=== PATIENT | female | born 1955 | race Caucasian/White ===

== ENCOUNTER 2019-03-03 15:04 | Emergency (ER) | payer BC ==
[2019-03-03] MEDS ORDERED: Sodium Chloride 0.9% 1000 ML 1,000 ML IV STA ×2 (15:32→18:47)
[2019-03-03] MEDS ORDERED: Sodium Chloride 0.9% 1000 ML 1,000 ML ONE ×3 (15:35→19:04)
[2019-03-03] MEDS ORDERED: MORPHINE SULFATE 4 MG INJ IV ONE ×3 (15:53→19:12)
[2019-03-03] MEDS ORDERED: Phenergan 25 MG INJ IM ONE (15:54)
[2019-03-03] MEDS ORDERED: MORPHINE SULFATE 4 MG INJ ONE ×3 (15:57→19:17)
[2019-03-03] MEDS ORDERED: Phenergan 25 MG INJ ONE (15:57)
--- NOTE | 2019-03-03 15:58 | ERPHSYRPT ---
- History of Present Illness Time Seen by Provider: 03/03/19 15:48 Historian: patient Exam Limitations: no limitations Patient Subjective Stated Complaint: Pt states "I had second dose of radiation today for cancer in my spine and about an hour or so ago I started to have severe abdominal pain and nausea." Triage Nursing Assessment: Pt presented alert and orented X 3, skin pwd pt grunting, moves slowly, able to speak in clear full sentences. PT in no apparent respiratory distress. Physician History: 63-year-old white female with history of breast cancer with metastases to the bone arrives with complaint of pain in the epigastric region radiating to her back which is severe which began on the way home from receiving second dose of radiation for her back Patient states she's been having dry heaves no fevers Past medical history includes diabetes type 2, hyperlipidemia, high blood pressure, GERD, breast cancer, bone cancer, anxiety. Past surgical history includes cholecystectomy, partial mastectomy on the left, left axillary lymph node, hysterectomy Social history patient denies tobacco alcohol or illicit drug use. Timing/Duration: today Activities at Onset: other (ddriving home from receiving radiation treatment) Quality: aching Abdominal Pain Onset Location: epigastric Pain Radiation: back Severity of Pain-Max: moderate Severity of Pain-Current: moderate Modifying Factors: Improves With: nothing Associated Symptoms: back, diaphoresis, nausea, other (dry heavesdry heaves), No chest pain, No diarrhea, No fever/chills, No fatigue, No headache, No heartburn, No loss of appetite, No neck pain, No rash, No shortness of breath, No syncope, No vomiting, No weakness Previous symptoms: no prior history Allergies/Adverse Reactions: No Known Drug Allergies Allergy (Unverified 03/03/19 15:22) Home Medications: Anastrozole [Arimidex] 1 mg PO DAILY 03/03/19 [History] Atorvastatin Calcium [Lipitor] 40 mg PO DAILY 03/03/19 [History] Denosumab [Xgeva] 120 mg SQ 03/03/19 [History] Dexamethasone [Decadron] 4 mg PO BID 03/03/19 [History] Escitalopram Oxalate 10 mg [Lexapro 10 MG] 10 mg PO DAILY 03/03/19 [History] Fish Oil/Dha/Epa [Fish Oil 1,200 mg Fish Oil] 1 each PO DAILY 03/03/19 [History] Hydrochlorothiazide 25 mg [hydroDIURIL 25 MG] 25 mg PO DAILY 03/03/19 [ History] Lisinopril 10 mg [Zestril 10 MG] 10 mg PO DAILY 03/03/19 [History] Metformin HCl 500 mg [Glucophage 500 MG] 1,000 mg PO BIDWM 03/03/19 [ History] Multivitamin/Iron/Folic Acid [Centrum Adults Tablet] 1 each PO DAILY 03/03/19 [ History] Nebivolol HCl [Bystolic] 10 mg PO DAILY 03/03/19 [History] Tramadol HCl 50 mg [Ultram 50 mg] 50 mg PO DAILY 03/03/19 [History] Hx Tetanus, Diphtheria Vaccination/Date Given: Yes Hx Influenza Vaccination/Date Given: No Hx Pneumococcal Vaccination/Date Given: No Immunizations Up to Date: Yes - Review of Systems Constitutional: No Fever, No Chills Eyes: No Symptoms Ears, Nose, & Throat: No Symptoms Respiratory: No Cough, No Dyspnea Cardiac: No Chest Pain, No Edema, No Syncope Abdominal/Gastrointestinal: Abdominal Pain, Other (dry heaves) Genitourinary Symptoms: No Dysuria Musculoskeletal: Back Pain, No Arthralgias, No Neck Pain, No Deformity, No Fall , No Injury, No Joint Redness, No Joint Pain, No Joint Swelling, No Myalgias Skin: No Rash Neurological: No Dizziness, No Focal Weakness, No Sensory Changes Psychological: No Symptoms Endocrine: No Symptoms All Other Systems: Reviewed and Negative - Past Medical History Pertinent Past Medical History: Yes Neurological History: No Pertinent History ENT History: No Pertinent History Cardiac History: High Cholesterol, Hypertension Respiratory History: No Pertinent History Endocrine Medical History: Diabetes Type II Musculoskeletal History: Bone Cancer GI Medical History: GERD History: No Pertinent History Psycho-Social History: Anxiety Female Reproductive Disorders: Breast Cancer, Other - Past Surgical History Past Surgical History: Yes Other Surgical History: mamadou. partial masectomy left side. left axilary lymph node. left shoulder - Social History Smoking Status: Never smoker Exposure to second hand smoke: No Drug Use: none Patient Lives Alone: No - Female History Hx Now: No - Nursing Vital Signs Nursing Vital Signs: Initial Vital Signs Temperature 98.0 F 03/03/19 15:14 Pulse Rate 79 03/03/19 15:14 Respiratory Rate 24 03/03/19 15:14 Blood Pressure 130/74 03/03/19 15:14 O2 Sat by Pulse Oximetry 98 03/03/19 15:14 Pain Scale Pain Intensity 5 - Physical Exam General Appearance: moderate distress, alert Eye Exam: PERRL/EOMI, eyes nml inspection Ears, Nose, Throat Exam: normal ENT inspection, pharynx normal, moist mucous membranes Neck Exam: normal inspection, non-tender, supple, full range of motion Respiratory Exam: normal breath sounds, lungs clear, No respiratory distress Cardiovascular Exam: regular rate/rhythm, normal heart sounds, capillary refill <2 sec Gastrointestinal/Abdomen Exam: soft, tenderness (tender epigastric region with palpation), distention Back Exam: normal inspection, normal range of motion, No CVA tenderness, No vertebral tenderness Extremity Exam: normal inspection, normal range of motion, pelvis stable Neurologic Exam: alert, oriented x 3, dispenser operator II-XII nml as tested Skin Exam: normal color, warm, dry SpO2 Interpretation: normal (98%) SpO2: 98 Ordered Tests: Active Orders 24 hr Category Date Time Status EKG-ER Only STAT Care 03/03/19 15:53 Active IV Insertion STAT Care 03/03/19 15:53 Active IV Insertion-2nd Peripheral STAT Care 03/03/19 19:02 Active ABDOMEN AND PELVIS W CONTRAST [CT] Stat Exams 03/03/19 17:06 Taken AMYLASE Stat Lab 03/03/19 15:53 Completed BLOOD CULTURE Stat Lab 03/03/19 18:47 Ordered CBC W DIFF Stat Lab 03/03/19 15:53 Completed CMP Stat Lab 03/03/19 15:53 Completed CULTURE,URINE Stat Lab 03/03/19 16:37 Received LIPASE Stat Lab 03/03/19 15:53 Completed Lactic Acid Stat Lab 03/03/19 18:58 Results Manual Differential NC Stat Lab 03/03/19 15:53 Completed TROPONIN Q3H Lab 03/03/19 16:00 Completed TROPONIN Q3H Lab 03/03/19 19:04 Completed TROPONIN Q3H Lab 03/03/19 22:00 Ordered TROPONIN Q3H Lab 03/04/19 01:00 Ordered TROPONIN Q3H Lab 03/04/19 04:00 Ordered UA W/RFX UR CULTURE Stat Lab 03/03/19 16:37 Completed VENOUS BLOOD GAS Stat Lab 03/03/19 18:58 Completed Medication Summary Generic Name Dose Route Start Last Admin Trade Name Liza PRN Reason Stop Dose Admin Sodium Chloride 1,000 mls @ 100 mls/hr 03/03/19 17:15 03/03/19 19:03 Sodium Chloride 0.9% 1000 Ml IV 04/02/19 17:14 999 mls/hr .Q10H VAHE Infusion Discontinued Medications Generic Name Dose Route Start Last Admin Trade Name Liza PRN Reason Stop Dose Admin Sodium Chloride 1,000 mls @ 999 mls/hr 03/03/19 15:32 03/03/19 16:37 Sodium Chloride 0.9% 1000 Ml IV 03/03/19 16:32 Infused .Q1H1M STA Infusion Sodium Chloride Confirm 03/03/19 15:35 Sodium Chloride 0.9% 1000 Ml Administered 03/03/19 15:36 Dose 1,000 mls @ ud .ROUTE .STK-MED ONE Sodium Chloride 1,000 mls @ 999 mls/hr 03/03/19 18:47 03/03/19 19:08 Sodium Chloride 0.9% 1000 Ml IV 03/03/19 19:47 999 mls/hr .Q1H1M STA Administration Piperacillin Sod/Tazobactam Sod 3.375 gm in 100 mls @ 200 mls/hr 03/03/19 18: 52 03/03/19 19:16 Zosyn 3.375gm/100 Ml D5w IV 03/03/19 19:21 200 ml/hr STAT STA 200 mls/hr Administration Piperacillin Sod/Tazobactam Sod Confirm 03/03/19 19:04 Zosyn 3.375gm/100 Ml D5w Administered 03/03/19 19:05 Dose 3.375 gm in 100 mls @ ud IV .STK-MED ONE Morphine Sulfate 4 mg 03/03/19 15:53 03/03/19 16:00 Morphine Sulfate 4 Mg Inj IV 03/03/19 15:54 4 mg STAT ONE Administration Morphine Sulfate Confirm 03/03/19 15:57 Morphine Sulfate 4 Mg Inj Administered 03/03/19 15:58 Dose 4 mg .ROUTE .STK-MED ONE Morphine Sulfate 4 mg 03/03/19 17:06 03/03/19 17:17 Morphine Sulfate 4 Mg Inj IV 03/03/19 17:07 4 mg STAT ONE Administration Morphine Sulfate Confirm 03/03/19 17:14 Morphine Sulfate 4 Mg Inj Administered 03/03/19 17:15 Dose 4 mg .ROUTE .STK-MED ONE Morphine Sulfate 4 mg 03/03/19 19:12 03/03/19 19:19 Morphine Sulfate 4 Mg Inj IV 03/03/19 19:13 4 mg STAT ONE Administration Morphine Sulfate Confirm 03/03/19 19:17 Morphine Sulfate 4 Mg Inj Administered 03/03/19 19:18 Dose 4 mg .ROUTE .STK-MED ONE Promethazine HCl 25 mg 03/03/19 15:54 03/03/19 16:01 Phenergan 25 Mg Inj IM 03/03/19 15:55 25 mg STAT ONE Administration Promethazine HCl Confirm 03/03/19 15:57 Phenergan 25 Mg Inj Administered 03/03/19 15:58 Dose 25 mg .ROUTE .STK-MED ONE Lab/Rad Data: Laboratory Result Diagrams 03/03/19 15:53 03/03/19 15:53 Laboratory Results 03/03/19 03/03/19 03/03/19 Range/Units 19:04 18:58 18:58 WBC (4.0-10.5) K/mm3 RBC (4.1-5.4) M/mm3 Hgb (12.0-16.0) gm/dl Hct (35-47) % MCV (78-100) fl MCH (26-32) pg MCHC (32-36) g/dl RDW (11.5-14.0) % Plt Count (150-450) K/mm3 MPV (6-9.5) fl pO2/FiO2 Ratio 21.0 % VBG pH 7.34 (7.32-7.42) VBG pCO2 at Pat Temp 46 (42-55) mm/Hg VBG pO2 at Pat Temp 20 L (25-40) mm/Hg VBG HCO3 24.8 (22-28) meq/L VBG O2 Sat ([place]) 35.0 L (95-100) VBG Base Excess -1.3 (-2.0-2.0) VBG Hemoglobin 12.8 VBG Carboxyhemoglobin 0.7 (0.0-6.9) % T HGB POC Potassium 4.3 (3.5-5.1) Sodium (137-145) mmol/L Potassium (3.5-5.1) mmol/L Chloride (98-107) mmol/L Carbon Dioxide (22-30) mmol/L Anion Gap (5-15) MEQ/L BUN (7-17) mg/dL Creatinine (0.52-1.04) mg/dL Estimated GFR ML/MIN Glucose (74-106) mg/dL Lactic Acid 3.2 H (0.4-2.0) Calcium (8.4-10.2) mg/dL Total Bilirubin (0.2-1.3) mg/dL AST (14-36) U/L ALT (0-35) U/L Alkaline Phosphatase (38-126) U/L Troponin I < 0.012 (0.000-0.034) ng/mL Serum Total Protein (6.3-8.2) g/dL Albumin (3.5-5.0) g/dL Amylase (30-110) U/L Lipase (23-300) U/L Urine Color (YELLOW) Urine Appearance (CLEAR) Urine pH (5-6) Ur Specific [place] (1.005-1.025) Urine Protein (Negative) Urine Ketones (NEGATIVE) Urine Blood (0-5) Kuldeep/ul Urine Nitrite (NEGATIVE) Urine Bilirubin (NEGATIVE) Urine Urobilinogen (0-1) mg/dL Ur Leukocyte Esterase (NEGATIVE) Urine WBC (Auto) (0-5) /HPF Urine RBC (Auto) (0-2) /HPF U Epithel Cells (Auto) (FEW) /HPF Urine Bacteria (Auto) (NEGATIVE) /HPF Urine Mucus (Auto) (NEGATIVE) /HPF Urine Culture Reflexed (NO) Urine Glucose (NEGATIVE) mg/dL 03/03/19 03/03/19 03/03/19 Range/Units 16:37 16:00 15:53 WBC (4.0-10.5) K/mm3 RBC (4.1-5.4) M/mm3 Hgb (12.0-16.0) gm/dl Hct (35-47) % MCV (78-100) fl MCH (26-32) pg MCHC (32-36) g/dl RDW (11.5-14.0) % Plt Count (150-450) K/mm3 MPV (6-9.5) fl pO2/FiO2 Ratio % VBG pH (7.32-7.42) VBG pCO2 at Pat Temp (42-55) mm/Hg VBG pO2 at Pat Temp (25-40) mm/Hg VBG HCO3 (22-28) meq/L VBG O2 Sat ([place]) (95-100) VBG Base Excess (-2.0-2.0) VBG Hemoglobin VBG Carboxyhemoglobin (0.0-6.9) % T HGB POC Potassium (3.5-5.1) Sodium 136 L (137-145) mmol/L Potassium 5.3 H (3.5-5.1) mmol/L Chloride 99 (98-107) mmol/L Carbon Dioxide 27 (22-30) mmol/L Anion Gap 15.9 H (5-15) MEQ/L BUN 32 H (7-17) mg/dL Creatinine 0.85 (0.52-1.04) mg/dL Estimated GFR > 60.0 ML/MIN Glucose 114 H (74-106) mg/dL Lactic Acid (0.4-2.0) Calcium 8.4 (8.4-10.2) mg/dL Total Bilirubin 0.40 (0.2-1.3) mg/dL AST 40 H (14-36) U/L ALT 59 H (0-35) U/L Alkaline Phosphatase 1317 H (38-126) U/L Troponin I < 0.012 (0.000-0.034) ng/mL Serum Total Protein 7.2 (6.3-8.2) g/dL Albumin 3.7 (3.5-5.0) g/dL Amylase 257 H (30-110) U/L Lipase 417 H (23-300) U/L Urine Color YELLOW (YELLOW) Urine Appearance SLIGHTLY CLOUDY (CLEAR) Urine pH 5.0 (5-6) Ur Specific [place] 1.023 (1.005-1.025) Urine Protein NEGATIVE (Negative) Urine Ketones NEGATIVE (NEGATIVE) Urine Blood NEGATIVE (0-5) Kuldeep/ul Urine Nitrite NEGATIVE (NEGATIVE) Urine Bilirubin NEGATIVE (NEGATIVE) Urine Urobilinogen NEGATIVE (0-1) mg/dL Ur Leukocyte Esterase SMALL (NEGATIVE) Urine WBC (Auto) 11-15 (0-5) /HPF Urine RBC (Auto) 0-2 (0-2) /HPF U Epithel Cells (Auto) NONE (FEW) /HPF Urine Bacteria (Auto) RARE (NEGATIVE) /HPF Urine Mucus (Auto) SLIGHT (NEGATIVE) /HPF Urine Culture Reflexed YES (NO) Urine Glucose NEGATIVE (NEGATIVE) mg/dL 03/03/19 Range/Units 15:53 WBC 10.8 H (4.0-10.5) K/mm3 RBC 4.81 (4.1-5.4) M/mm3 Hgb 13.7 (12.0-16.0) gm/dl Hct 42.4 (35-47) % MCV 88.1 (78-100) fl MCH 28.5 (26-32) pg MCHC 32.3 (32-36) g/dl RDW 17.6 H (11.5-14.0) % Plt Count 338 (150-450) K/mm3 MPV 8.5 (6-9.5) fl pO2/FiO2 Ratio % VBG pH (7.32-7.42) VBG pCO2 at Pat Temp (42-55) mm/Hg VBG pO2 at Pat Temp (25-40) mm/Hg VBG HCO3 (22-28) meq/L VBG O2 Sat ([place]) (95-100) VBG Base Excess (-2.0-2.0) VBG Hemoglobin VBG Carboxyhemoglobin (0.0-6.9) % T HGB POC Potassium (3.5-5.1) Sodium (137-145) mmol/L Potassium (3.5-5.1) mmol/L Chloride (98-107) mmol/L Carbon Dioxide (22-30) mmol/L Anion Gap (5-15) MEQ/L BUN (7-17) mg/dL Creatinine (0.52-1.04) mg/dL Estimated GFR ML/MIN Glucose (74-106) mg/dL Lactic Acid (0.4-2.0) Calcium (8.4-10.2) mg/dL Total Bilirubin (0.2-1.3) mg/dL AST (14-36) U/L ALT (0-35) U/L Alkaline Phosphatase (38-126) U/L Troponin I (0.000-0.034) ng/mL Serum Total Protein (6.3-8.2) g/dL Albumin (3.5-5.0) g/dL Amylase (30-110) U/L Lipase (23-300) U/L Urine Color (YELLOW) Urine Appearance (CLEAR) Urine pH (5-6) Ur Specific [place] (1.005-1.025) Urine Protein (Negative) Urine Ketones (NEGATIVE) Urine Blood (0-5) Kuldeep/ul Urine Nitrite (NEGATIVE) Urine Bilirubin (NEGATIVE) Urine Urobilinogen (0-1) mg/dL Ur Leukocyte Esterase (NEGATIVE) Urine WBC (Auto) (0-5) /HPF Urine RBC (Auto) (0-2) /HPF U Epithel Cells (Auto) (FEW) /HPF Urine Bacteria (Auto) (NEGATIVE) /HPF Urine Mucus (Auto) (NEGATIVE) /HPF Urine Culture Reflexed (NO) Urine Glucose (NEGATIVE) mg/dL - Progress Progress: improved Progress Note: 03/03/19 18:53 Notified by virtual radiology patient has perforation along the greater curvature of the gastric antrum with free intraperitoneal air but no definitive per gastric abscess as well as small abscess in the gastric wall. Patient also with extensive osteoblastic metastatic disease apical lucencies involving the right femoral head and neck could represent treated metastatic lesions. There is a large left pleural effusion and left basilar atelectasis I've gone ahead and ordered blood cultures on this patient lactate intravenous gases have been ordered. I've ordered Zosyn to be begun as soon as blood cultures have been obtained. I've ordered of normal saline will give patient a total of 3 L. I have placed a call to [facility] one call for possible transfer. The patient's oncologist is at [facility] and the patient has asked to go to [facility]. Impression epigastric pain,. Perforated gastric antrum . History of breast cancer with metastases. 03/03/19 19:13 I contacted [facility] one call was put in contact with , he did want to know whether the patient wanted aggressive measures. He stated that the patient should be transferred to the hospitalist and if she wants aggressive measures they need to let her know I went ahead and discuss this with the patient at this time she wishes to have aggressive measures and possible surgery. Will go ahead and plan to transfer once I get a hold of the hospitalist at [facility]. Patient is receiving morphine IV for pain Zosyn has been ordered as noted above IV fluids have been given to the patient. . 03/03/19 20:03 the patient was accepted to [facility] By Dr Spangler - Departure Departure Disposition: Transfer ([facility], Dr Spangler) Clinical Impression: perforated gastric antrum, History of breast cancer with metastases Abdominal pain Qualifiers: Abdominal location: epigastric Qualified Code(s): R10.13 - Epigastric pain Condition: Fair Critical Care Time: No Referrals: TRISHA PEREZ MD [Primary Care Provider] -
[2019-03-03 16:20] LABS: Hematocrit 42.4 % (35-47); Hemoglobin 13.7 gm/dl (12.0-16.0); Mean Cell Volume 88.1 fl (78-100); Mean Corpuscular Hemoglobin 28.5 pg (26-32); Mean Corpuscular Hgb Concent. 32.3 g/dl (32-36); Mean Platelet Volume 8.5 fl (6-9.5); Platelet Count 338 K/mm3 (150-450); Red Blood Count 4.81 M/mm3 (4.1-5.4); Red Cell Distribution Width 17.6 % (11.5-14.0); White Blood Count 10.8 K/mm3 (4.0-10.5)
[2019-03-03 16:33] LABS: ALBUMIN 3.7 g/dL (3.5-5.0); ALKALINE PHOSPHATASE 1317 U/L (38-126); AMYLASE 257 U/L (30-110); ANION GAP 15.9 MEQ/L (5-15); BLOOD UREA NITROGEN 32 mg/dL (7-17); CHLORIDE 99 mmol/L (98-107); Calcium 8.4 mg/dL (8.4-10.2); Carbon Dioxide 27 mmol/L (22-30); Creatinine 1 0.85 mg/dL (0.52-1.04); Glucose 114 mg/dL (74-106); LIPASE 417 U/L (23-300); Potassium 5.3 mmol/L (3.5-5.1); SGOT/AST 40 U/L (14-36); SGPT/ALT 59 U/L (0-35); SODIUM 136 mmol/L (137-145); Total Protein 7.2 g/dL (6.3-8.2)
[2019-03-03 16:47] LABS: Appearance SLIGHTLY CLOUDY (CLEAR); Bacteria RARE /HPF (NEGATIVE); Bilirubin NEGATIVE (NEGATIVE); Blood NEGATIVE Ery/ul (0-5); Glucose NEGATIVE (NEGATIVE); Ketones NEGATIVE (NEGATIVE); Leukocyte Esterase SMALL (NEGATIVE); Mucus SLIGHT /HPF (NEGATIVE); Nitrite NEGATIVE (NEGATIVE); Protein,Urine Dip NEGATIVE (Negative); RBC 0-2 /HPF (0-2); Specific Gravity 1.023 (1.005-1.025); Urobilinogen NEGATIVE mg/dL (0-1)
[2019-03-03] MEDS ORDERED: Sodium Chloride 0.9% 1000 ML 1,000 ML IV SCH (17:15)
[2019-03-03] MEDS ORDERED: Zosyn 3.375GM/100 Ml D5W 3.375 GM/100 ML IVPB IV STA (18:52)
[2019-03-03 19:04] LABS: VBG BASE EXCESS -1.3 (-2.0-2.0); VBG CARBOXYHEMOGLOBIN 0.7 % T HGB (0.0-6.9); VBG HCO3- 24.8 meq/L (22-28); VBG HEMOGLOBIN 12.8; VBG POTASSIUM 4.3 (3.5-5.1); VBG pH 7.34 (7.32-7.42)
[2019-03-03] MEDS ORDERED: Zosyn 3.375GM/100 Ml D5W 3.375 GM/100 ML IVPB IV ONE (19:04)
[2019-03-03 19:05] LABS: Lactic Acid 3.2 (0.4-2.0)
[2019-03-03 20:50] VITALS: BP 109/53; PULSE 68; O2SAT 96
[2019-03-03 21:18] LABS: Lymphocytes 4 % (24-44); Monocyte 7 % (0.0-12.0); Neutrophils 89 % (36.0-66.0); Platelet Estimate NORMAL (NORMAL); Total Cells Counted 100
[2019-03-03 21:19] LABS: ANISOCYTOSIS 1+; Poikilocytosis 1+
--- NOTE | 2019-03-04 08:43 | XRAY ---
Indication: Abdomen pain and vomiting. Status post radiation therapy for bone cancer. Multiple contiguous axial images obtained through the abdomen and pelvis using 80 cc Isovue 370 contrast only. Comparison: None Lung bases demonstrates incompletely visualized moderate left base and tiny right base effusions with compressive atelectasis. Heart is enlarged. Noncontrasted stomach and bowel loops appear nonobstructed. Anterior wall of the stomach demonstrates perforation with small free air throughout the abdomen. Tiny perihepatic and left colic gutter free fluid. Normal appendix. Mild sigmoid diverticulosis. Multiple hepatic cysts, largest 4.3 cm. Previous cholecystectomy and hysterectomy. Remaining pancreas, spleen, adrenal glands, kidneys, ureters, and bladder appear unremarkable. Mild aortic calcifications. No AAA or pathologic retroperitoneal lymphadenopathy. Osseous structures demineralized with mild multilevel degenerative spondylosis and moderate levorotoscoliosis centered at L3. Multiple sclerotic lesions throughout the axial skeleton including ribs and proximal femurs favoring known metastasis. Tiny fatty umbilical hernia. Impression: 1. Perforated stomach with free fluid/air as detailed. 2. Diffuse bony metastasis. 3. Cardiomegaly with bibasilar effusions/atelectasis concerning for cardiac decompensation. 4. Incidental hepatic cysts, sigmoid diverticulosis, fatty umbilical hernia, degenerative spondylosis, and scoliosis. Comment: Preliminary interpretation was made by C. No critical discrepancy. CT DI 19.99
== END 2019-03-03 21:00 | disposition short-term general hospital (02) ==
LOC: ED 15:04
DX: K63.1 Perforation of intestine (nontraumatic) (principal); C50.919 Malignant neoplasm of unspecified site of unspecified female breast; C79.51 Secondary malignant neoplasm of bone; R10.13 Epigastric pain; I10 Essential (primary) hypertension; E11.9 Type 2 diabetes mellitus without complications; Z79.4 Long term (current) use of insulin; K21.9 Gastro-esophageal reflux disease without esophagitis; Z79.899 Other long term (current) drug therapy
CPT/HCPCS: 36000; 36415; 74177; 80053; 81001; 82150; 82805; 83605; 83690; 84484; 85025; 87040; 87086; 93005; 96360; 96361; 96365; 96372; 96374; 96376; 99285; J2270; J2543; J2550